=== PATIENT | female | born 1975 | race Two or more races ===

== ENCOUNTER 2018-06-11 11:57 | Emergency (ER) | payer MEDICAID ==
[~2018-06-11] VITALS: Ht 167.6 cm; Wt 68.0 kg
[2018-06-11] MEDS ORDERED: SODIUM CHLORIDE 0.9% 1,000 ML IV ONE (12:15)
[2018-06-11 12:38] LABS: BASOPHILS % 0.5 % (0.0-2.0); EOSINOPHILS % 4.1 % (0.0-5.0); HEMATOCRIT. 38.6 % (36.0-48.0); HEMOGLOBIN. 13.3 g/dL (12.0-16.0); LYMPHOCYTES % 42.2 % (20.0-50.0); MEAN CORPUSCULAR HEMOGLOBIN 28.8 pg (28.0-32.0); MEAN CORPUSCULAR VOLUME 83.6 fL (81.0-99.0); MEAN PLATELET VOLUME 9.5 fl (7.4-10.4); NEUTROPHILS % 44.2 % (40.0-76.0); PLATELET 207 x1000/uL (130-400); RED BLOOD CELL COUNT 4.62 mill/uL (4.2-5.4); RED CELL DISTRIBUTION WIDTH 12.9 % (11.6-14.6)
[2018-06-11 12:45] LABS: CHLORIDE 109 mEq/L (98-107)
[2018-06-11 12:47] LABS: D-DIMER 0.23 mg/L FEU (<0.50); INR 1.2; PROTHROMBIN TIME 11.6 sec (9.1-11.1)
[2018-06-11 13:01] LABS: HCG SCREEN NEGATIVE
[2018-06-11 13:57] VITALS: BP 143/86
== END 2018-06-11 14:02 | disposition home or self-care (01) ==
LOC: ER 11:57 → CANBEDREQ 06-12 00:17
DX: I47.1 Supraventricular tachycardia (principal); I10 Essential (primary) hypertension
CPT/HCPCS: 36415; 71045; 80053; 83605; 83880; 84443; 84484; 84703; 85025; 85379; 85610; 93005; 99284; J7030